=== PATIENT | female | born 1995 | race Caucasian/White ===

== ENCOUNTER 2018-05-04 16:47 | Emergency (ER) | payer OTHER ==
[2018-05-04] MEDS ORDERED: NS 1,000 ML IV ONE (17:25)
--- NOTE | 2018-05-04 17:32 | EDPHY ---
H & P Stated Complaint: c/o lower mid abd pain/nausea/intermittent fever x 2 months, today chest ti - Medical/Surgical History Hx Asthma: No Hx Chronic Respiratory Disease: No Hx Diabetes: No Hx Cardiac Disease: No Hx Renal Disease: No Hx Cirrhosis: No Hx Alcoholism: No Hx HIV/AIDS: No Hx Splenectomy or Spleen Trauma: No Other PMH: anxiety/depression, herpes zoster, eczema, tonsillectomy - Social History Smoking Status: Never smoked Time Seen by Provider: 05/04/18 17:04 HPI/ROS: CLINICAL IMPRESSION: Pelvic congestion syndrome, chronic pelvic pain, palpitations ASSESSMENT/PLAN: 23-year-old female presents to the emergency department with a 2-3 month history of chronic lower pelvic pain and substernal chest tightness with palpitations that began earlier today. Patient was sent from urgent care. She arrives tachycardic at 117 but not hypoxic, and otherwise in no acute distress. There is no pleuritic component to her chest discomfort and she denies shortness of breath. EKG shows sinus tachycardia with no acute ST or T-wave changes, reviewed with Dr. Hawthorne. Chest x-ray with no acute cardiopulmonary abnormality, troponin negative and D-dimer negative. Patient has had significant workup for her pelvic pain over the last 2 months. Please see HPI for full details. CT abdomen and pelvis with contrast 1 week ago showed increased vascularity to the left hemipelvis. Formal pelvic ultrasound today confirms varicose veins in the left hemipelvis consistent with pelvic congestion syndrome. This could be treated by interventional radiology and a referral to Dr. Dunn was provided. Labs are otherwise reassuring with no leukocytosis, renal insufficiency, electrolyte imbalance, severe dehydration. Heart rate improved after 1 L fluid. Patient had a normal urine culture 1 week ago. She is currently on doxycycline and Flagyl. She has an appointment tomorrow with OBGYN which I encouraged she keep. I provided copies of her ultrasound report and images on a disc. She received a small amount of pain medication tonight and she has not been taking any pain medication thus far. All questions were answered, warning signs return to ED sooner outlined and discharge. DIFFERENTIAL DX: Abdominal pain includes but not limited to urinary tract infection, pyelonephritis, infection, ectopic , salpingitis, TOA, ovarian torsion, ovarian cyst, endometriosis, uterine fibroids, acute appendicitis, acute diverticulitis, small-bowel obstruction, constipation. myocardial ischemia, pulmonary embolus, chest wall pain, pleural inflammation, musculoskeletal chest wall pain, aortic aneurysm, and pulmonary infectious causes. ED PROCEDURES: See lab and/or imaging results below ED COURSE: Review of patients diagnostic workup thus far: Most recent urine culture 04/26 showed no growth Pap's on 11-17-17 and 04-25-18 Labs on 03-23-18 showed WBC 7.7, H/H 13/41, Cr 0.7, Na 142, K 4.6, AST 15, ALT 9 , Lipase 42. CT abd/pelvis on 04-25-18 showed minimal pelvic free fluid and increased pelvic vasculature, ? pelvic congestion syndrome. 6:48 P.M.: Ultrasound results discussed with Dr. Alvarado. Findings consistent with possible pelvic congestion syndrome. Results discussed with patient and copy of report provided. EKG in case reviewed with Dr. Hawthorne. Improved tachycardia. Low suspicion for PE, DVT, ACS, and sepsis. Will plan to DC and have her follow up with OBGYN tomorrow as scheduled. CHIEF COMPLAINT: Abdominal pain x2 months, chest tightness today HPI: This is a 23-year-old female with past medical history of well-controlled depression and anxiety, presents to the emergency department today from urgent care for evaluation of chest tightness that began today while she was watching TV. Patient also reports she has been struggling with intermittent abdominal pain for over 2 months. Patient states lower abdominal pain began with UTI type symptoms in mid February. She was out of state and treated for urinary tract infection but reports her symptoms never improved. Since that time she has been seen numerous times by her primary care provider, Dr. Laverne Newell , and has taken for additional antibiotics. Some of the she never completed the course of due to her symptoms persisting. She had a CT scan of the abdomen and pelvis with contrast approximately 3 weeks ago, and was told"she had increased blood flow to the uterus". In that time she has also had negative vaginal cultures, wet prep, STD testing, negative urinary cultures, and is currently on her last day of doxycycline and Flagyl for possible PID. She has had negative test. She has an appointment tomorrow with an OBGYN at [facility]. Today while watching TV she developed substernal chest tightness and palpitations. She believes her resting heart rate is usually in the 90s. This is not pleuritic or worsened by deep breaths and she denies associated shortness of breath. She has not been ill with URI symptoms recently. She has had intermittent documented, fevers over the last 2 months, reportedly as high as 101. She has been chronically nauseous since all of her symptoms began. No reported vomiting or diarrhea. Eating does not exacerbate her symptoms. No visible blood in her stools. She has not had a formal pelvic ultrasound. There is no family history of cardiac disease at a young age but both parents have hypertension. Her mother also suffered from a brain aneurysm when the patient was 7 years old. No history of DVT or PE. No recent travel, surgery and she is otherwise mobile. 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 PAST MEDICAL HISTORY: Anxiety, depression See nurse/triage notes for additional history if applicable Pertinent Past Surgical History: None reported Family History: Mother with an aneurysm when the patient was 7, both parents with hypertension Social History: Nonsmoker, works as a legal job titles on estrogen based control REVIEW OF SYSTEMS: All other systems negative Constitutional: Intermittent fever, no chills, intermittent appetite change. ENT: No sore throat, congestion, ear pain. Cardiovascular: Positive for chest pain, and palpitations. Respiratory: No cough, no shortness of breath. Gastrointestinal: Chronic abdominal pain, positive nausea, no vomiting, diarrhea. Genitourinary: No hematuria, dysuria, flank pain, positive pelvic pain positive urgency and frequency Musculoskeletal: No back pain, joint swelling, joint pain, myalgias. Skin: No rashes, color change. Neurological: No headache, dizziness, weakness. PHYSICAL EXAM: General Appearance: Alert, oriented, appropriate, cooperative, NAD, well hydrated, non-toxic appearing, tachycardic, no hypoxia. HEENT: Oropharynx clear is no erythema or exudates, no tonsillar hypertrophy or asymmetry. Dentition without abnormality. Neck: Supple, nontender, no lymphadenopathy, no midline pain, FROM, no meningismus. Respiratory: There are no retractions, lungs are clear to auscultation. Cardiac: Tachycardic at 1:15 a.m., regular rhythm, no murmurs or gallops. Gastrointestinal: Abdomen is soft, generalized tenderness, worse in the central pelvic region, hypoactive bowel sounds normal, no masses/hernia, no rigidity, guarding or focal peritoneal findings. Neurological: Alert and oriented x 3, CN 2-12 grossly intact Skin: Warm, dry, no rashes, no nodules on palpation. Musculoskeletal: Extremities are symmetrical, full range of motion, no tenderness, deformity, swelling, or erythema, no calf tenderness, erythema, warmth or asymmetry. Psychiatric: Patient is oriented X 3, there is no agitation. MEDICAL DECISION MAKING: Patient was seen independently. Secondary supervising physician at time of evaluation was Dr. Hawthorne. Diagnosis: Pelvic congestion syndrome, chronic pelvic pain, palpitations. New, requires workup Summary: See Assessment and Plan for summary of ED visit Clinical lab tests: ordered / reviewed. Independent visualization of images, tracing, or specimens: Yes. Decision to obtain medical records or history from someone other than the patient: No Review / Summarize previous medical records: Reviewed recent diagnostic studies and lab work on patient's portal which she provided Discussed patient with another provider: Dr. Hawthorne Patient Progress: Improved, stable. (Enoc Bello) Constitutional: Initial Vital Signs Temperature (C) 36.5 C 05/04/18 16:55 Heart Rate 117 H 05/04/18 16:55 Respiratory Rate 20 05/04/18 16:55 Blood Pressure 136/92 H 05/04/18 16:55 O2 Sat (%) 99 05/04/18 16:55 O2 Delivery Mode Room Air Allergies/Adverse Reactions: No Known Allergies Allergy (Verified 05/04/18 17:00) Home Medications: Medication Instructions Recorded Control 05/04/18 Effexor Xr 05/04/18 Hydrocodone/APAP 325 [[place] 1 - 2 tab PO Q4H PRN #10 tab 05/04/18 5/325 (*)] Medical Decision Making - Diagnostics EKG Interpretation: EKG: Complete interpretation has been separately recorded in the [facility] archive. Summary impression: Sinus tachycardia, rate 116 (Juno Hawthorne) Imaging Results: Imaging Impressions Pelvic/Renal Ultrasound 05/04/18 17:25 Impression:1. Left pelvic varicosities. Otherwise negative. Results discussed with Enoc Bello at 6:48 PM If this patient might be a candidate for embolization therapy, then consider consultation with Dr. Nicole Dunn of Interventional Radiology ([phone]). Chest X-Ray 05/04/18 17:26 Impression: No acute cardiopulmonary process. Other Provider: PHYSICIAN DOCUMENTATION: The patient was evaluated and managed by the Physician Circular Sawyer Stone. My co- signature indicates that I have reviewed this chart and I agree with the findings and plan of care as documented. I am the secondary supervising physician. (Juno Hawthorne) - Data Points Laboratory Results: Laboratory Results 05/04/18 17:10 05/04/18 17:10 05/04/18 05/04/18 05/04/18 17:13 17:10 17:10 WBC RBC Hgb Hct MCV MCH MCHC RDW Plt Count MPV Neut % (Auto) Lymph % (Auto) [place] % (Auto) Eos % (Auto) Baso % (Auto) Nucleat RBC Rel Count Absolute Neuts (auto) Absolute Lymphs (auto) Absolute Monos (auto) Absolute Eos (auto) Absolute Basos (auto) Absolute Nucleated RBC Immature Gran % Immature Gran # D-Dimer 0.42 ug/mLFEU ug/mLFEU (0.00-0.50) Sodium 139 mEq/L mEq/L (135-145) Potassium 3.9 mEq/L mEq/L (3.5-5.2) Chloride 109 mEq/L mEq/L (97-110) Carbon Dioxide 21 mEq/l L mEq/l (22-31) Anion Gap 9 mEq/L mEq/L (6-14) BUN 12 mg/dL mg/dL (7-23) Creatinine 0.7 mg/dL mg/dL (0.6-1.0) Estimated GFR > 60 Glucose 91 mg/dL mg/dL (70-100) Calcium 9.3 mg/dL mg/dL (8.5-10.4) POC Troponin I 0.00 ng/mL ng/mL (0.00-0.08) 05/04/18 17:10 WBC 7.16 10^3/uL 10^3/uL (3.80-9.50) RBC 4.84 10^6/uL 10^6/uL (4.18-5.33) Hgb 13.6 g/dL g/dL (12.6-16.3) Hct 41.3 % % (38.0-47.0) MCV 85.3 fL fL (81.5-99.8) MCH 28.1 pg pg (27.9-34.1) MCHC 32.9 g/dL g/dL (32.4-36.7) RDW 12.5 % % (11.5-15.2) Plt Count 334 10^3/uL 10^3/uL (150-400) MPV 9.7 fL fL (8.7-11.7) Neut % (Auto) 50.5 % % (39.3-74.2) Lymph % (Auto) 39.0 % % (15.0-45.0) [place] % (Auto) 5.2 % % (4.5-13.0) Eos % (Auto) 4.2 % % (0.6-7.6) Baso % (Auto) 1.0 % % (0.3-1.7) Nucleat RBC Rel Count 0.0 % % (0.0-0.2) Absolute Neuts (auto) 3.62 10^3/uL 10^3/uL (1.70-6.50) Absolute Lymphs (auto) 2.79 10^3/uL 10^3/uL (1.00-3.00) Absolute Monos (auto) 0.37 10^3/uL 10^3/uL (0.30-0.80) Absolute Eos (auto) 0.30 10^3/uL 10^3/uL (0.03-0.40) Absolute Basos (auto) 0.07 10^3/uL 10^3/uL (0.02-0.10) Absolute Nucleated RBC 0.00 10^3/uL 10^3/uL (0-0.01) Immature Gran % 0.1 % % (0.0-1.1) Immature Gran # 0.01 10^3/uL 10^3/uL (0.00-0.10) D-Dimer Sodium Potassium Chloride Carbon Dioxide Anion Gap BUN Creatinine Estimated GFR Glucose Calcium POC Troponin I Medications Given: Discontinued Medications Sodium Chloride (Ns) 1,000 mls @ 0 mls/hr IV EDNOW ONE; Wide Open PRN Reason: Protocol Stop: 05/04/18 17:26 Last Admin: 05/04/18 17:32 Dose: 1,000 mls Point of Care Test Results: Chemistry 05/04/18 17:13 POC Troponin I 0.00 ng/mL ng/mL (0.00-0.08) Departure - Departure Disposition: Home, Routine, Self-Care Clinical Impression: Pelvic congestion syndrome, Chronic pelvic pain in female, Palpitations Condition: Good Instructions: Pelvic Pain in Women (ED) Additional Instructions: DISCHARGE INSTRUCTIONS FROM YOUR DOCTOR Thank you for visiting our emergency department today. Please keep in mind that discharge from the emergency department does not mean that there is nothing wrong - it simply means that we have not identified an emergency condition that requires further evaluation or treatment in the hospital. You should always plan to follow up with primary care for re-evaluation of your condition in the next 2-3 days. If you have been referred to a specialist, please call as soon as possible (today or tomorrow) to schedule your follow up appointment at the appropriate time. PLEASE KEEP HER FOLLOW-UP APPOINTMENT TOMORROW WITH OBGYN. PELVIC ULTRASOUND TODAY WAS READ BY RADIOLOGY SHOWING DILATED VARICOSE VEINS IN THE LEFT HEMIPELVIS CONSISTENT WITH PELVIC CONGESTION SYNDROME. THIS MAY BE THE CAUSE OF YOUR PAIN. THIS CAN BE TREATED BY EMBOLIZATION OF THE VEINS WITH AN INTERVENTIONAL RADIOLOGIST AND WE DID GIVE YOU A REFERRAL TO DR. DUNN. PLEASE DISCUSS THIS WITH YOUR OBGYN. LAB WORK TODAY WAS REASSURING. EKG SHOWED SINUS TACHYCARDIA WITH NO ARRHYTHMIA. CARDIAC ENZYME WAS NEGATIVE AND CHEST X-RAY WAS UNREMARKABLE. WE DID NOT CHECK URINE STUDIES YOU RECENTLY HAD A NEGATIVE URINE CULTURE. PLEASE RETURN TO THE EMERGENCY DEPARTMENT FOR SEVERE PAIN, HIGH FEVERS, SIGNIFICANT ABDOMINAL BLOATING OR DISTENTION, VOMITING, OR ANY OTHER CONCERNS. People present with illnesses and injuries in different ways, and it is always possible that we have missed something. You may always return for re-evaluation if symptoms worsen or if they are not improving or if you develop new/different symptoms. Again, thank you for choosing our emergency department. We hope that you feel better. Referrals: Laverne Newell [Primary Care Provider] - As per Instructions Prescriptions: Hydrocodone/APAP 5/325 [[place] 5/325 (*)] 1 - 2 tab PO Q4H PRN #10 tab PRN Reason: Pain, Moderate
[2018-05-04 17:37] LABS: PLATELET COUNT 334 10^3/uL (150-400)
[2018-05-04 18:51] VITALS: BP 122/80
--- NOTE | 2018-05-04 18:59 | CPEKG ---
Test Reason : OPEN Blood Pressure : / mmHG Vent. Rate : 116 BPM Atrial Rate : 115 BPM P-R Int : 162 ms QRS Dur : 057 ms QT Int : 321 ms P-R-T Axes : 088 073 036 degrees QTc Int : 446 ms Sinus tachycardia Confirmed by Juno Hawthorne ([id number]) on 05/04/2018 6:59:24 PM Referred By: Confirmed By:Juno Hawthorne
== END 2018-05-04 19:15 | disposition home or self-care (01) ==
DX: N94.89 Other specified conditions associated with female genital organs and menstrual cycle (principal); R10.2 Pelvic and perineal pain; G89.29 Other chronic pain; R00.2 Palpitations; F41.8 Other specified anxiety disorders; E86.9 Volume depletion, unspecified
CPT/HCPCS: 84484-PO